=== PATIENT | female | born 2000 | race Two or more races ===

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

== ENCOUNTER 2021-04-18 03:08 | Emergency (ER) | payer MEDICAID ==
[~2021-04-18] VITALS: Ht 157.5 cm; Wt 55.0 kg
[~2021-04-18 03:08] MED LIST: CEPH-264 PO
--- NOTE | 2021-04-18 03:14 | PHYS DOC ---
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 I had a pseudo seizure... I get them when I am stressed.... 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 it been reall stressful.. I get anxious.. then start hyper ventilation. and eventually cramp up.. " .. " I do this to myself... I just get ahead of it... sometimes.." Patient is a 20 year old female who presents with above hx and complaints of seizure like activity. Patient states symptoms are similar to her prior episodes of pseudoseizures she has had in the past. Patient states she becomes anxious and then hyperventilates to the point of muscle cramping and contractions. Patient has been evaluated previously for seizures and no physical etiology found. Patient does vape since age 16. Patient denies any marijuana products today but has used them regularly previously. Patient recently started a new job at the [employer] which she finds very stressful. No recent travel. No specific ill contacts. No history of trauma. No history of fever or chills. Patient states her IUD appears to be still in place from placement a year and a half ago with the of her child who is currently with her sister. Patient has been seen previously in the ED for abdomen pain . Pt.has past hx of anxiety, anemia. PTSD, G1T1. Review of Systems: Review of Systems: Constitutional: Denies fever or chills Eyes: Denies change in visual acuity HENT: Denies nasal congestion or sore throat Respiratory: Denies cough or shortness of breath Cardiovascular: Denies chest pain or edema GI: Denies abdominal pain, nausea, vomiting, bloody stools or diarrhea : Denies dysuria Musculoskeletal: Denies back pain or joint pain Integument: Denies rash Neurologic: Denies headache, focal weakness or sensory changes. Complains of seizure-like activity Endocrine: Denies polyuria or polydipsia Lymphatic: Denies swollen glands Psychiatric: Complains of anxiety Family History: Family History: Noncontributory to presentation Current Medications: Current Meds: See nursing for home meds Allergies: Allergies: Allergies Coded Allergies Type Severity Reaction Last Updated Verified No Known Allergies Allergy Unknown 03/23/20 Yes Physical Exam: PE: Constitutional: Well developed, well nourished, in acute motional distress, non- toxic appearance. [] HENT: Normocephalic, atraumatic, bilateral external ears normal, oropharynx moist, no oral exudates, nose normal. [] Eyes: PERRLA, EOMI, conjunctiva normal, no discharge. [] Neck: Normal range of motion, no tenderness, supple, no stridor. [] Cardiovascular:Heart rate regular rhythm, no murmur [. Bed side monitor shows a sinus rhythm-tachycardia just over 100 bpm. Lungs & Thorax: Bilateral breath sounds equal apex few scattered wheezes on auscultation [] patient currently hyperventilating Abdomen: Bowel sounds normal, soft, no tenderness, no masses, no pulsatile masses. [] Skin: Warm, dry, no erythema, no rash. [] Back: No tenderness, no CVA tenderness. [] Extremities: No tenderness, no cyanosis, no clubbing, ROM intact, no edema. No cording appreciated Neurologic: Alert and oriented X 3, normal motor function, normal sensory function, no focal deficits noted. DTRs +2 patella and brachial. Inter Com Servicer equal. No drift. Ambulatory. Psychologic: Affect anxious, judgement normal, mood normal. [] EKG: EKG: [] Radiology/Procedures: Radiology/Procedures: [] Heart Score: C/O Chest Pain: N/A Risk Factors: Risk Factors: DM, Current or recent (<one month) smoker, HTN, HLP, family history of CAD, obesity. Risk Scores: Score 0 - 3: 2.5% MACE over next 6 weeks - Discharge Home Score 4 - 6: 20.3% MACE over next 6 weeks - Admit for Clinical Observation Score 7 - 10: 72.7% MACE over next 6 weeks - Early Invasive Strategies Course & Med Decision Making: Course & Med Decision Making Pertinent Labs and Imaging studies reviewed. (See chart for details) Patient currently declining extensive work-up. Does wished have po trial of Ativan p.o.. Patient normally follows at [facility] as a dependent. Pt. symptoms resolved while under observation in ED. Requesting discharge and no further work up at this time. Patient encouraged to keep follow-up at [facility]. Patient encouraged to keep follow-up with counseling center. Patient encouraged return if any concerns. Impression: 1. Anxiety- Panic Attack- Prior Dx. 2. Hx. of Seizure like activity- prior Dx of pseudo seizure 3. Hyperventilation 4. Marijuana- Vape use [] Dragon Disclaimer: Dragon Disclaimer: This electronic medical record was generated, in whole or in part, using a voice recognition dictation system. Departure Departure: Referrals: PCP,NO (PCP) Orquidea Disclaimer This chart was dictated in whole or in part using Voice Recognition software in a busy, high-work load, and often noisy Emergency Department environment. It m ay contain unintended and wholly unrecognized errors or omissions. COURTNEY CABRERA MD Apr 18, 2021 03:14
[2021-04-18] MEDS ORDERED: ONDANSETRON PF 4 MG/2 ML VIAL. ONE (03:40)
[2021-04-18] MEDS ORDERED: ONDANSETRON ODT 4 MG TAB.RAPDIS ONE (03:43)
[2021-04-18] MEDS ORDERED: LORazepam 1 MG TABLET PO ONE (04:00)
[2021-04-18] MEDS ORDERED: ONDANSETRON ODT 4 MG TAB.RAPDIS PO ONE (04:00)
[2021-04-18 05:03] LABS: BARBITURATES NEG (NEG); BENZODIAZEPINES NEG (NEG); CANNABINOIDS POS (NEG); COCAINE NEG (NEG); METHADONE NEG (NEG); OPIATES NEG (NEG); PHENCYCLIDINE NEG (NEG)
[2021-04-18 05:06] LABS: AMPHETAMINE/METHAMPHETAMINE NEG (NEG)
[2021-04-18 05:08] LABS: BILIRUBIN,URINE NEG (NEG); CLARITY,URINE CLEAR; COLOR,URINE YELLOW; GLUCOSE,URINE NEG (NEG)
[2021-04-18 05:09] LABS: BACTERIA,URINE 0 /HPF (0-FEW); NITRITE,URINE NEG (NEG); RBC,URINE 0 /HPF (0-2); SQUAMOUS EPITHELIAL CELL,UR FEW /LPF; UROBILINOGEN,URINE 0.2 mg/dL (0.2 mg/dL); WBC,URINE 0 /HPF (0-4)
[2021-04-18 05:53] VITALS: BP 103/59
== END 2021-04-18 06:05 | disposition home or self-care (01) ==
LOC: ER 03:08
DX: F41.9 Anxiety disorder, unspecified (principal); R06.4 Hyperventilation; Z86.2 Personal history of diseases of the blood and blood-forming organs and certain disorders involving the immune mechanism; F43.10 Post-traumatic stress disorder, unspecified
CPT/HCPCS: 36415; 80307; 81001; 81025; 99284; Q0162

== ENCOUNTER 2021-04-22 22:51 | Observation (INO) | payer MEDICAID ==
[~2021-04-22] VITALS: Ht 165.1 cm; Wt 53.5 kg
--- NOTE | 2021-04-22 22:55 | PHYS DOC ---
Past History Past Medical History: Anemia, Anxiety, Seizure, Other Additional Past Medical Histor: SICKLE CELL TRAIT Past Surgical History: No Surgical History Smoking: Non-smoker Alcohol Use: None Drug Use: None Adult General HPI HPI Patient is a 20-year-old female with multiple medical problems including anxiety and panic attacks who presents with a chief complaint of panic attack and muscle spasms. States over the course of the day she has been having multiple anxiety attacks, starts breathing really fast and starts having some muscle spasms especially around her mouth. Denies any loss of consciousness, headache, changes in vision, chest pain, shortness of breath, abdominal pain, nausea, vomiting, dysuria, hematuria, blood in the stool or diarrhea. States she has seen her primary care and was started on Lexapro about 3 weeks ago and has been taking it as prescribed. Denies any recent traumas, travels, illnesses, fevers. Review of Systems Review of Systems Review of systems otherwise unremarkable except noted in HPI Allergies Allergies Allergies Coded Allergies Type Severity Reaction Last Updated Verified No Known Allergies Allergy Unknown 03/23/20 Yes Physical Exam Physical Exam Constitutional: Well developed, well nourished, no acute distress, non-toxic appearance. [] HENT: Normocephalic, atraumatic, bilateral external ears normal, oropharynx moist, no oral exudates, nose normal. [] Eyes: PERRLA, EOMI, conjunctiva normal, no discharge. [] Neck: Normal range of motion, no tenderness, supple, no stridor. [] Cardiovascular:Heart rate regular rhythm, no murmur [] Lungs & Thorax: Bilateral breath sounds clear to auscultation [] Abdomen: soft, no tenderness, no masses, no pulsatile masses. [] Skin: Warm, dry, no erythema, no rash. [] Back: No tenderness, no CVA tenderness. [] Extremities: No tenderness, no cyanosis, no clubbing, ROM intact, no edema. [] Neurologic: Alert and oriented X 3, normal motor function, normal sensory function, no focal deficits noted. [] Psychologic: Affect normal, judgement normal, mood anxious [] EKG EKG [] Radiology/Procedures Radiology/Procedures [] Heart Score C/O Chest Pain: No Risk Factors: Risk Factors: DM, Current or recent (<one month) smoker, HTN, HLP, family history of CAD, obesity. Risk Scores: Risk Factors: DM, Current or recent (<one month) smoker, HTN, HLP, family history of CAD, obesity. Course & Med Decision Making Course & Med Decision Making Patient is a 20-year-old female who presents with anxiety and panic attack and muscle spasms Vital signs notable for heart rate in the 90s. Physical exam noted above. Blood sugar normal. Given antianxiety medication. Laboratory analysis notable for leukocytosis, hypokalemia, suggestive of metabolic acidemia with compensatory respiratory alkalosis given anion gap, and ketonuria. Given findings, SIRS criteria there is some concern for sepsis although urine is clean, chest x-ray was normal and CT of the abdomen pelvis did not show anything. CT of the head also not concerning. The blood cultures and started on antibiotics and fluid resuscitation. Discussed findings with patient and recommended admission to the hospital for continued evaluation and treatment for possible sepsis. Patient grateful, verbalized understanding and agreed with plan of admission. Dragon Disclaimer Dragon Disclaimer This electronic medical record was generated, in whole or in part, using a voice recognition dictation system. Departure Departure: Impression: Primary Impression: SIRS (systemic inflammatory response syndrome) Additional Impressions: Nausea and vomiting Rigors Hypokalemia Leukocytosis Metabolic acidosis with respiratory alkalosis Disposition: ADMITTED INPATIENT Admitting Physician: Collin Francis Condition: STABLE Referrals: PCP,NO (PCP) Problem Qualifiers BHUPENDRA ROSS MD Apr 22, 2021 22:55
[2021-04-22] MEDS ORDERED: MIDAZOLAM HCL PF 5 MG/5 ML VIAL. IV ONE (23:15)
[2021-04-22] MEDS ORDERED: METOCLOPRAMIDE HCL 10 MG/2 ML VIAL. IVP ONE (23:15)
[2021-04-22 23:44] LABS: BILIRUBIN,URINE NEG (NEG); CLARITY,URINE HAZY; COLOR,URINE YELLOW; GLUCOSE,URINE NEG (NEG); NITRITE,URINE NEG (NEG); RBC,URINE OCC /HPF (0-2); UROBILINOGEN,URINE 0.2 mg/dL (0.2 mg/dL)
[2021-04-22 23:45] LABS: BACTERIA,URINE 0 /HPF (0-FEW); SQUAMOUS EPITHELIAL CELL,UR OCC /LPF
[2021-04-23] MEDS ORDERED: IV DEXTROSE 5% - 0.9 % NACL 1,000 ML IV ONE ×2 (00:15→01:15)
[2021-04-23 00:21] LABS: HEMATOCRIT 36.8 % (36.0-47.0); HEMOGLOBIN 11.8 g/dL (12.0-15.5); RED BLOOD COUNT 5.79 x10^6/uL (3.50-5.40); RED CELL DISTRIBUTION WIDTH 19.4 % (11.5-14.5); WHITE BLOOD COUNT 12.5 x10^3/uL (4.0-11.0)
[2021-04-23 00:25] LABS: CALCIUM 9.4 mg/dL (8.5-10.1); CREATININE 0.6 mg/dL (0.6-1.0); GFR 155.8; MAGNESIUM 1.9 mg/dL (1.8-2.4)
[2021-04-23 00:35] LABS: POTASSIUM 2.6 mmol/L (3.5-5.1)
[2021-04-23] MEDS ORDERED: ONDANSETRON PF 4 MG/2 ML VIAL. ONE (01:29)
[2021-04-23] MEDS ORDERED: ONDANSETRON PF 4 MG/2 ML VIAL. IVP ONE (01:30)
--- NOTE | 2021-04-23 01:36 | RAD ---
EXAM: CT Head without IV contrast CLINICAL HISTORY: Reason: infectious w/u COMPARISON: None. TECHNIQUE: Routine CT of the head without contrast. PQRS compliance statement - One or more of the following individualized dose reduction techniques wer e utilized for this study: 1. Automated exposure control 2. Adjustment of the mA and/or kV according to patient size 3. Use of iterative reconstruction technique FINDINGS: There is no evidence of hemorrhage, mass or extra-axial fluid collection. Mcfarland-white differentiation is maintained with no evidence of edema. There is no mass effect or shift of the intracranial structures. The ventricles, basilar cisterns and cortical sulci are normal in size and configuration for the carol ents stated age. The cerebellum and brainstem are unremarkable. The calvarium demonstrates no evidence of fracture or focal lesion. There is normal aeration of the visualized paranasal sinuses and mastoid air cells. The visualized portions of the orbits are normal. IMPRESSION: No evidence for acute intracranial process. Electronically signed by: Kody Norris MD (04/23/2021 1:34 AM) [facility]
--- NOTE | 2021-04-23 01:37 | RAD ---
EXAM: AP View of the chest DATE: 04/23/2021 12:52 AM INDICATION: Reason: w/u / Spl. Instructions: / History: COMPARISON: No Prior FINDINGS: The heart is not enlarged. Mediastinal and hilar contours are normal. No focal parenchymal airspace opacity. No pleural effusion or pneumothorax. IMPRESSION: 1. No radiographic evidence for acute cardiopulmonary process. Electronically signed by: Kody Norris MD (04/23/2021 1:34 AM) [facility]
[2021-04-23] MEDS ORDERED: IOHEXOL 300 MG/ML 75 ML VIAL. IV ONE (01:45)
[2021-04-23] MEDS ORDERED: CONTRAST GIVEN. MC PRN (02:00)
[2021-04-23] MEDS: POTASSIUM CHLORIDE 20MEQ 100 ML IV SCH ×2 (02:15→02:26)
--- NOTE | 2021-04-23 02:31 | RAD ---
EXAM: CT Abdomen and Pelvis with IV contrast CLINICAL HISTORY: Reason: OMNI 300,75ML IV.ABD pain, sepsis w/u / Spl. Instructions: / History: . COMPARISON: none TECHNIQUE: Helical CT of the abdomen and pelvis was performed following the administration of intrave nous contrast. Axial, coronal and sagittal reformatted images were generated. PQRS compliance statement - One or more of the following individualized dose reduction techniques wer e utilized for this study: 1. Automated exposure control 2. Adjustment of the mA and/or kV according to patient size 3. Use of iterative reconstruction technique FINDINGS: Lower Chest: Lung bases are clear. Abdomen and Pelvis: Focal low-attenuation along falciform ligament likely focal fatty infiltration. Spleen is unremarkabl e. Adrenal glands are normal. Pancreas is unremarkable. Symmetric nephrograms. No focal renal lesion. No hydronephrosis. No hydroureter. Bladder wall thickening likely cystitis. IUD is seen within the l ower uterine segment, with limited possibly extending through the myometrium. Moderate colonic stool content is seen. No small or large bowel dilatation. No bowel obstruction. No abdominal or pelvic asc ites. No abdominal or pelvic lymphadenopathy. A 2.7 x 1.8 x 2.2 cm cystic structure is seen in the re gion of the distal urethra or low vagina. No aggressive osseous lesion is seen. IMPRESSION: 2.7 cm cystic structure abutting the urethra or vagina, with peripheral enhancement, is new compared to prior CT 03/23/2020. This may represent urethral cyst, given the peripheral enhancement abscess is not excluded. This can be correlated with clinical examination. Bladder wall thickening may be seen with cystitis. IUD is seen within the likely uterine segment, partially within the myometrium Electronically signed by: Kody Norris MD (04/23/2021 2:28 AM) [facility]
[2021-04-23 02:34] LABS: BARBITURATES NEG (NEG); BENZODIAZEPINES NEG (NEG); CANNABINOIDS POS (NEG); COCAINE NEG (NEG); METHADONE NEG (NEG); OPIATES NEG (NEG); PHENCYCLIDINE NEG (NEG)
[2021-04-23 02:35] LABS: AMPHETAMINE/METHAMPHETAMINE NEG (NEG)
[2021-04-23] MEDS ORDERED: POTASSIUM CHLORIDE 20 MEQ TABLET.ER. PO ONE ×2 (02:46→10:45)
[2021-04-23] MEDS ORDERED: ACETAMINOPHEN 325 MG TABLET PO PRN (03:15)
[2021-04-23] MEDS ORDERED: ONDANSETRON PF 4 MG/2 ML VIAL. IVP PRN (03:15)
[2021-04-23] MEDS ORDERED: PROCHLORPERAZINE 10 MG/2 ML VIAL. IV ONE (03:30)
[2021-04-23] MEDS ORDERED: diphenhydrAMINE 50 MG/ML VIAL IVP ONE (03:30)
[2021-04-23] MEDS ORDERED: PROCHLORPERAZINE 10 MG/2 ML VIAL. ONE (03:33)
[2021-04-23 04:12] VITALS: BP 104/69
--- NOTE | 2021-04-23 04:52 | NUR ---
The patient, BILL COLLINS, 20 y/o, F admitted by EDINSON LEZAMA MD, was given written information regarding hospital policies, unit procedures and contact persons. Valuables were checked and vital signs obtained. Reviewed with PT her PMH, PSH, SH, FH, and medications. PT oriented to unit.
[2021-04-23 06:18] VITALS: BP 108/73
[2021-04-23] MEDS ORDERED: FLU VACC QUAD 21-22 (6MOS+) PF 0.5 ML SYRINGE. VAX IM ONE (09:00)
[2021-04-23] MEDS ORDERED: MORPHINE SULFATE 2 MG/ML DISP.SYRIN. IV PRN (10:30)
--- NOTE | 2021-04-23 10:45 | NUR ---
PATIENT C/O PAIN TO LOW ABDOMEN AND BACK, DR. LEZAMA NOTIFIED, ORDER FOR MORPHINE PRN OBTAINED, ADMINISTERED TO THE PATIENT.
[2021-04-23 10:46] VITALS: BP 109/73
--- NOTE | 2021-04-23 11:22 | HP ---
ATTENDING PHYSICIAN: Dr. Francis. CHIEF COMPLAINT: Vague symptoms of back pain and panic attack. HISTORY OF PRESENT ILLNESS: The patient is a 20-year-old female with vague symptoms and her grandmother told her to come in. She has had some muscle spasms and some nonspecific abdominal pain. She has had one episode of diarrhea. Her potassium was a bit low. The workup in the ED showed a total body CT, which show evidence of cystitis. There is unremarkable cyst that is non-clinically relevant. She was admitted then for antibiotics and treatment of honeymoon cystitis. She is sexually active. PAST MEDICAL HISTORY: Significant for a natural childbirth a year ago. She has a 1-year-old daughter. She has an IUD. 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 She is unmarried. Her grandmother takes care of her child. Her father is active station in [place]. CURRENT MEDICATIONS: Include Lexapro, which was started for anxiety and depression. ALLERGIES: She has no known drug allergies. SOCIAL HISTORY: Nonsmoker, nondrinker. There is evidence of marijuana use. REVIEW OF SYSTEMS: Unremarkable for any fevers, chills, COVID exposure. All other systems reviewed and turned to be negative. PHYSICAL EXAMINATION: GENERAL: When I saw her, this is a pleasant young female. VITAL SIGNS: Initial vital signs showed a blood pressure 108/73. She was afebrile, oxygen saturation 98% on room air. HEENT: Head is without trauma. Pupils are reactive. Sclerae nonicteric. Oropharynx clear. NECK: Supple, no bruits. LUNGS: Clear. CARDIOVASCULAR: Regular heart tones. No gallop. ABDOMEN: Soft. EXTREMITIES: Without edema. NEUROLOGIC: Function focally intact. SKIN: Warm and dry. PERTINENT LABORATORY STUDIES: Hemoglobin is 11.8 g/dL, white count 12,500. Potassium 2.6 mEq. Her toxicology screen was positive for cannabis. Urinalysis showed leukocyte esterase. No bacteria, occasional squamous cell. CT of the abdomen showed evidence of cystitis. Head CT was unremarkable. Chest x-ray was clear. ASSESSMENT: 1. A 20-year-old female with symptomatic cystitis. 2. History of panic attacks. 3. Asymptomatic hypokalemia. PLAN: 1. Observation status. 2. Empiric antibiotic Levaquin administered. 3. Potassium supplementation for followup, chemistries as scheduled. SYH/KAREL DR: LEO/mary jo TID: [id number]
--- NOTE | 2021-04-23 11:52 | NUR ---
PATIENT IS DISCHARGED HOME, DISCHARGE INSTRUCTIONS AND PRESCRIBED MEDICATIONS REVIEWED, PATIENT VERBALIZED UNDERSTANDING. PATIENT LEFT ROM 119 VIA AMBULATION ACCOMP BY THIS RN.
--- NOTE | 2021-04-23 17:37 | DS ---
DATE OF DISCHARGE: 04/23/2021 ATTENDING PHYSICIAN: Collin Francis MD FINAL DISCHARGE DIAGNOSES: 1. Acute cystitis. 2. Chronic back pain. 3. Asymptomatic hypokalemia. 4. Depression with anxiety. HISTORY AND PHYSICAL: The patient is a 20-year-old female, otherwise healthy, admitted through the ED with vague symptoms of GI pain, abdominal symptoms and back pain. CT of the abdomen showed evidence of acute cystitis. PHYSICAL EXAMINATION: Please see the dictated note. PERTINENT LABORATORY AND X-RAY STUDIES: Hemoglobin on admission was 11.8 g/dL, white count 12,500. Potassium was 2.6 mEq. This will be replaced and followed up as an outpatient. Toxicology screen positive for cannabinoids. Urinalysis showed some bacteria, leukocyte esterase. Coronavirus swab was negative. COURSE IN THE HOSPITAL: The patient was admitted. She was given empiric Levaquin. We started oral potassium replacement along with pain medication. She did well. By the time I saw her, her vital signs were stable, she was afebrile. Symptoms resolved and pain was controlled. She wanted to go home. I recommended Levaquin 500 mg p.o. daily, 1 daily for 7 more days, K-Dur 20 mEq p.o. daily. [place] She should get a recheck chemistry panel in 10 days. Should take [id number] Tylenol. The patient was then discharged from our hospital in stable condition with explicit drug and followup care. NADER/RICHARD LEONG: LEO/mary jo TID: [id number]
[2021-04-23] MEDS ORDERED: POTASSIUM CHLORIDE 20 MEQ TABLET.ER. PO SCH (21:00)
== END 2021-04-23 11:50 | disposition home or self-care (01) ==
LOC: ER 22:51 → INTOOBSV 04-23 03:15 → 1 SOUTH 04-23 03:15 → ER 04-23 03:42
PROVIDERS: ADMIT Hospitalist; ATTEND Hospitalist
DX: N30.90 Cystitis, unspecified without hematuria (principal); Z20.822 Contact with and (suspected) exposure to COVID-19; R65.10 Systemic inflammatory response syndrome (SIRS) of non-infectious origin without acute organ dysfunction; F41.0 Panic disorder [episodic paroxysmal anxiety]; E87.6 Hypokalemia; R68.89 Other general symptoms and signs; D72.829 Elevated white blood cell count, unspecified; E87.2 Acidosis; M54.9 Dorsalgia, unspecified; G89.29 Other chronic pain; F32.9 Major depressive disorder, single episode, unspecified; F41.9 Anxiety disorder, unspecified; R11.2 Nausea with vomiting, unspecified
CPT/HCPCS: 36415; 70450; 71045; 74177; 80048; 80307; 81001; 81025; 82803; 83605; 83735; 85027; 87040; 87086; 87426; 87491; 87591; 96361; 96365; 96366; 96368; 96375; 96376; 99284; G0378; J0780; J1200; J1956; J2250; J2270; J2405; J2765; J3010; J3480; J7042; Q0111; Q9967; U0003; G0379; 99285-25

== ENCOUNTER 2021-06-23 06:12 | Emergency (ER) | payer MEDICAID ==
[~2021-06-23] VITALS: Ht 165.1 cm; Wt 50.2 kg
[2021-06-23 06:25] VITALS: BP 118/73
--- NOTE | 2021-06-23 06:31 | PHYS DOC ---
Past History Past Medical History: Anemia, Anxiety, Seizure, Other Additional Past Medical Histor: SICKLE CELL TRAIT Past Surgical History: No Surgical History Smoking: Non-smoker Alcohol Use: None Drug Use: None Adult General Chief Complaint Chief Complaint: NAUSEA/VOMITING/DIARRHEA HPI HPI Patient is a 20-year-old female presenting for nausea and vomit. This is a chronic issue. States this is been going on for several months. Reports she was admitted here in April 2021 for sepsis due to UTI and urethral abscess that was subsequently treated with antibiotics. States she has had no issues with that ever since. Nonetheless, she reports ongoing nausea and vomit. States only thing that helps is marijuana use. P.o. intake makes worse. States she has lost approximately 20 pounds just because she feels nauseous every time she eats. Denies any significant alcohol or NSAID abuse, no other intra- abdominal abnormalities or prior surgeries. She saw her primary care physician yesterday who after thorough evaluation stated that he thought it was anxiety and subsequently prescribed her numerous behavioral health medications. Patient reports she did not think this is the case and is here for evaluation. Denies any other concerning signs or symptoms of systemic illness such as fever, chills, chest pain, cough, shortness of breath, ripping or tearing sensation in abdomen, changes in bladder or bowel function, no urinary symptoms Review of Systems Review of Systems Fourteen body systems of review of systems have been reviewed. See HPI for pertinent positives and negative responses, other jin all other systems are negative, non-pertinent or non-contributory Allergies Allergies Allergies Coded Allergies Type Severity Reaction Last Updated Verified No Known Allergies Allergy Unknown 06/23/21 Yes Physical Exam Physical Exam Constitutional: Well developed, well nourished, no acute distress, non-toxic appearance. HENT: Normocephalic, atraumatic, bilateral external ears normal, oropharynx moist, no oral exudates, nose normal. Eyes: PERRLA, EOMI, conjunctiva normal, no discharge. Neck: Normal range of motion, no tenderness, supple, no stridor. Cardiovascular: Heart rate regular, sinus rhythm, no murmurs rubs or gallops Lungs & Thorax: Bilateral breath sounds clear to auscultation Abdomen: Bowel sounds normal, soft, no tenderness, no masses, no pulsatile masses. Nonsurgical abdomen, no peritoneal signs Skin: Warm, dry, no erythema, no rash. Back: No tenderness, no CVA tenderness. Extremities: No tenderness, no cyanosis, no clubbing, ROM intact, no edema. Neurologic: Alert and oriented X 3, grossly normal motor & sensory function, no focal deficits noted. Psychologic: Anxious affect and mood Current Patient Data Vital Signs Vital Signs Date Time Temp Pulse Resp B/P (MAP) Pulse Ox O2 Delivery O2 Flow Rate FiO2 06/23/21 06:25 98.5 88 16 118/73 (88) 97 Room Air Vital Signs Date Time Temp Pulse Resp B/P (MAP) Pulse Ox O2 Delivery O2 Flow Rate FiO2 06/23/21 06:25 98.5 88 16 118/73 (88) 97 Room Air EKG EKG [] Radiology/Procedures Radiology/Procedures [] Heart Score C/O Chest Pain: No Risk Factors: Risk Factors: DM, Current or recent (<one month) smoker, HTN, HLP, family history of CAD, obesity. Risk Scores: Risk Factors: DM, Current or recent (<one month) smoker, HTN, HLP, family history of CAD, obesity. Course & Med Decision Making Course & Med Decision Making ABCs unremarkable HPI and comprehensive physical exam nonconcerning for any emergent or surgical issues I reviewed entirety of prior ER work-up that was grossly nonconcerning. Physical exam today also nonconcerning I discussed anxiety is likely contributing to her presenting symptoms. Also discussed marijuana as potential source. Although patient vaccinated for COVID- 19, cannot exclude and PCR test pending. Discussed this might be related to GERD/stomach ulcer and so joint decision made to start Carafate and acid brandi. Patient has Phenergan at home, request for additional antiemetic granted and patient will be discharged home with Reglan No indication for further diagnostic ER workup, intervention, or hospitalization at this time. Strict return precautions discussed, close PCP follow-up advised Orquidea Disclaimer Orquidea Disclaimer This electronic medical record was generated, in whole or in part, using a voice recognition dictation system. Departure Departure: Impression: Primary Impression: Nausea & vomiting Additional Impression: Person under investigation for COVID-19 Disposition: HOME / SELF CARE / HOMELESS Condition: STABLE Referrals: EDINSON WILEY MD (PCP) ADELE YOST MD Patient Instructions: Nausea and Vomiting Additional Instructions: You were seen for abdominal pain. We are putting you on a medication to reduce your stomach acid levels. You should avoid alcohol, fatty or spicy foods, or NSAIDs as these can exacerbate your symptoms. You are also seen for possible infection with COVID-19. Your physical exam was reassuring. We tested you for COVID-19 but this test does not come back for 1 to 2 days. In the meantime you need to quarantine yourself at home away from all other individuals, especially those who are elderly or have any other chronic health issues or an immunocompromised status. Please contact your primary care physician to review ER visit today, as discussed you would benefit from a gastroenterology co nsultation. Return to the ED if you develop worsening pain, fever, black or bloody stools, or any other new or concerning symptoms. The medicine we started you on can take a few days to work fully. Scripts Metoclopramide Hcl (REGLAN) 10 Mg Tablet 1 TAB PO TID for nausea, #30 TAB 0 Refills before food and bedtime Prov: CHASIDY AQUINO DO 06/23/21 Pantoprazole Sodium (PROTONIX) 40 Mg Tablet.dr 1 TAB PO DAILY for stomach issues, #30 TAB 0 Refills Prov: CHASIDY AQUINO DO 06/23/21 Sucralfate (CARAFATE) 1 Gm/10 Ml Oral.susp 10 ML PO QID for stomach issues for 30 Days, L 0 Refills before food Prov: CHASIDY AQUINO DO 06/23/21 Problem Qualifiers CHASIDY AQUINO DO Jun 23, 2021 06:31
[2021-06-23] MEDS ORDERED: METOCLOPRAMIDE 10 MG TABLET PO ONE (06:45)
[2021-06-23] MEDS ORDERED: SUCR1ORA5 PO (06:48)
[2021-06-23] MEDS ORDERED: PANT40TA3 PO (06:48)
[2021-06-23] MEDS ORDERED: METO10TA81 PO (06:48)
--- NOTE | 2021-06-26 09:19 | NUR ---
Called for covid results @[phone] no answer. Message left
--- NOTE | 2021-06-26 09:21 | NUR ---
patient notified of covid result
== END 2021-06-23 07:14 | disposition home or self-care (01) ==
LOC: ER 06:12
DX: R11.2 Nausea with vomiting, unspecified (principal); F41.9 Anxiety disorder, unspecified; Z20.822 Contact with and (suspected) exposure to COVID-19; Z86.2 Personal history of diseases of the blood and blood-forming organs and certain disorders involving the immune mechanism
CPT/HCPCS: 99283; C9803; U0003

== ENCOUNTER 2021-07-17 19:06 | Emergency (ER) | payer MEDICAID ==
[~2021-07-17] VITALS: Ht 165.1 cm; Wt 50.8 kg
[~2021-07-17 19:06] MED LIST changes: +METO10TA81 PO; +PANT40TA3 PO; +SUCR1ORA5 PO
--- NOTE | 2021-07-17 19:13 | PHYS DOC ---
Past History Past Medical History: Anemia, Anxiety, Seizure, Other Additional Past Medical Histor: SICKLE CELL TRAIT, borderline personality d/o, pseudoseizure Past Surgical History: No Surgical History Smoking: Non-smoker Alcohol Use: None Drug Use: None General Adult EDM: Chief Complaint: FLANK PAIN HPI: HPI: " I got a UTI or something.. I hurt in my abdomen.. and back....both flanks hurt... " Patient is a 20 year old female [employer] [place] [employer] who presents with above hx and complaints of Rt flank pain. And some generalized abdomen pain. Patient denies any trauma. Patient denies any travel. Patient denies specific ill contacts. Patient denies any history of ovarian cyst. Patient denies any history of Crohn's or inflammatory bowel disorders with him or her family members. Patient does have a history of cystitis, UTI, anxiety, panic attacks, hypokalemia, irritable bowel syndrome, and uses marijuana.. No recent trauma. Uses an IUD for control. Follows with Dr. Wiley. Review of Systems: Review of Systems: Constitutional: Denies fever or chills Eyes: Denies change in visual acuity HENT: Denies nasal congestion or sore throat Respiratory: Denies cough or shortness of breath Cardiovascular: Denies chest pain or edema GI: Complains of abdominal pain, nausea, vomiting. Denies, bloody stools or diarrhea : Denies dysuria Musculoskeletal: Complains of bilateral flank back pain Integument: Denies rash Neurologic: Denies headache, focal weakness or sensory changes Endocrine: Denies polyuria or polydipsia Lymphatic: Denies swollen glands Psychiatric: Denies depression or anxiety Family History: Family History: Noncontributory Current Medications: Current Meds: See nursing for home meds Allergies: Allergies: Allergies Coded Allergies Type Severity Reaction Last Updated Verified No Known Allergies Allergy Unknown 06/23/21 Yes Physical Exam: PE: Constitutional: Moderate acute distress, non-toxic appearance. [] HENT: Normocephalic, atraumatic, bilateral external ears normal, oropharynx moist, no oral exudates, nose normal. [] Eyes: PERRLA, EOMI, conjunctiva normal, no discharge. [] Neck: Normal range of motion, no tenderness, supple, no stridor. [] Cardiovascular:Heart rate regular rhythm, no murmur [] Lungs & Thorax: Bilateral breath sounds equal apex auscultation [] Abdomen: Bowel sounds are active, soft, generalized tenderness, no masses, no pulsatile masses. Rebound to flanks bilaterally on percussion. Skin: Warm, dry, no erythema, no rash. [] Back: No tenderness, lateral CVA tenderness. [] Extremities: No tenderness, no cyanosis, no clubbing, ROM intact, no edema. Psoas sign bilateral. Neurologic: Alert and oriented X 3, normal motor function, normal sensory function, no focal deficits noted. [] Psychologic: Affect anxious, judgement normal, mood tearful EKG: EKG: [] Radiology/Procedures: Radiology/Procedures: [] [place] [address] IMAGING REPORT Signed PATIENT: BILL COLLINS ACCOUNT: [id number] : 2000 LOCATION: ER AGE: 20 SEX: F EXAM STATUS: REG ER ORD. PHYSICIAN: COURTNEY CABRERA MD REASON: Right sided abdomen pain PROCEDURE: ACUTE ABDOMEN SERIES INDICATION: Reason: Right sided abdomen pain / Spl. Instructions: / History: COMPARISON: April 23, 2021 CT abdomen IMPRESSION: 3 views of the chest and abdomen obtained. Cardiac silhouette is unremarkable. No definite focal airspace consolidation or pulmonary edema. Air scattered throughout the bowel in a nonspecific but not grossly obstructive pattern. Intrauterine device is seen at the pelvis. Electronically signed by: Madhavi Leslie MD (07/17/2021 11:52 PM) DESKTOP- [id number] DICTATED AND SIGNED BY: MADHAVI LESLIE MD DATE: 07/17/21 3555 CC: EDINSON WILEY MD; COURTNEY CABRERA MD ~MTH0 0 Signed PATIENT: BILL COLLINS ACCOUNT: [id number] : 2000 LOCATION: ER AGE: 20 SEX: F EXAM STATUS: REG ER ORD. PHYSICIAN: COURTNEY CABRERA MD REASON: Right sided abdomen pain PROCEDURE: CT ABDOMEN PELVIS WO CONTRAST Abdominal and Pelvis CT, Without Contrast: History: Reason: Right sided abdomen pain / Spl. Instructions: / History: Comparison: April 23, 2021. Procedure: Axial images are obtained of the abdomen and pelvis, without IV or oral contrast. Oral Contrast: No Findings: Evaluation of solid organs is limited without contrast. The appendix is normal. The gallbladder is normal. There is an IUD in the uterus. There is mild wall thickening of the descending colon hepatic flexure and transverse colon. Liver: Normal. Spleen: Normal. Pancreas: Normal. Adrenal Glands: Normal. Kidneys: Normal. There is no free air or free fluid. There is no lymphadenopathy. The urinary bladder is collapsed. Moderate wall thickening is likely hypertrophy. There is no pericolonic inflammation identified. Impression: Mild luna colitis could be inflammatory or infectious. There is no diverticulitis. There is no air in the wall to suggest ischemic colitis. End impression PQRS Compliance Statement: One or more of the following individualized dose reduction techniques were utilized for this examination: 1. Automated exposure control 2. Adjustment of the mA and/or kV according to patient size 3. Use of iterative reconstruction technique Electronically signed by: Jacquelin Morales III, MD (07/17/2021 9:40 PM) [facility] DICTATED AND SIGNED BY: JACQUELIN MORALES III, MD DATE: 07/17/212132 CC: EDINSON WILEY MD; COURTNEY CABRERA MD ~MTH0 0 Heart Score: C/O Chest Pain: N/A HEART Score for Chest Pain: HEART Score for Chest Pain Response (Comments) Value History Slighlty/Non-Suspicious 0 ECG Normal 0 Age < 45 0 Risk Factors No Risk Factors 0 Troponin < Normal Limit 0 Total 0 Risk Factors: Risk Factors: DM, Current or recent (<one month) smoker, HTN, HLP, family history of CAD, obesity. Risk Scores: Score 0 - 3: 2.5% MACE over next 6 weeks - Discharge Home Score 4 - 6: 20.3% MACE over next 6 weeks - Admit for Clinical Observation Score 7 - 10: 72.7% MACE over next 6 weeks - Early Invasive Strategies Course & Med Decision Making: Course & Med Decision Making Pertinent Labs and Imaging studies reviewed. (See chart for details) Go on clear fluid diet only for the next 48 hours. No solids. No milk products. Clear fluids only may push Jell-O 7-Up Gatorade Pedialyte popsicles clear juices such as apple or grape. Avoid solids and milk products next 2 days. Take Cipro 500 twice a day and Flagyl 500 x3 times a day. Trial of mesalamine. Take Zofran as needed for nausea. Take Tylenol and ibuprofen for pain. Once over this acute phase of your illness recommend colonoscopy.. Follow-up primary care. Impression: 1. Abdomen pain 2. Pancolitis 3. Hx. Anxiety Orquidea Disclaimer: Orquidea Disclaimer: This electronic medical record was generated, in whole or in part, using a voice recognition dictation system. Departure Departure: Referrals: EDINSON WILEY MD (PCP) Scripts Hydrocodone/Ibuprofen (HYDROCODONE-IBUPROFEN 7.5-200 ) 1 Each Tablet 1 TAB PO PRN Q6HRS PRN for PAIN, #30 TAB 0 Refills Prov: COURTNEY CABRERA MD 07/17/21 Fluconazole (DIFLUCAN) 100 Mg Tablet 100 MG PO DAILY for post antibiotics for 3 Days, #3 TAB Prov: COURTNEY CABRERA MD 07/17/21 Mesalamine (Mesalamine) 800 Mg Tablet.dr 1 TAB PO TID for pancolitis for 30 Days, #90 TAB 0 Refills Prov: COURTNEY CABRERA MD 07/17/21 Ondansetron Hcl (ZOFRAN) 4 Mg Tablet 8 MG PO QIDPRN PRN for NAUSEA/VOMITING, #30 TAB Prov: COURTNEY CABRERA MD 07/17/21 Metronidazole (FLAGYL) 375 Mg Capsule 500 MG PO TID for colitis for 10 Days, #40 CAP Prov: COURTNEY CABRERA MD 07/17/21 Ciprofloxacin Hcl (CIPRO) 500 Mg Tablet 500 MG PO BID for colitis for 7 Days, #14 TAB Prov: COURTNEY CABRERA MD 07/17/21 Dragon Disclaimer This chart was dictated in whole or in part using Voice Recognition software in a busy, high-work load, and often noisy Emergency Department environment. It may contain unintended and wholly unrecognized errors or omissions. COURTNEY CABRERA MD Jul 17, 2021 19:13
[2021-07-17 20:06] LABS: BARBITURATES NEG (NEG); BENZODIAZEPINES NEG (NEG); CANNABINOIDS POS (NEG); COCAINE NEG (NEG); METHADONE NEG (NEG); OPIATES NEG (NEG); PHENCYCLIDINE NEG (NEG)
[2021-07-17 20:08] LABS: BACTERIA,URINE 0 /HPF (0-FEW); BILIRUBIN,URINE NEG (NEG); CLARITY,URINE CLEAR; COLOR,URINE YELLOW; GLUCOSE,URINE NEG (NEG); NITRITE,URINE NEG (NEG); RBC,URINE 0 /HPF (0-2); SQUAMOUS EPITHELIAL CELL,UR FEW /LPF; UROBILINOGEN,URINE 0.2 mg/dL (0.2 mg/dL); WBC,URINE 0 /HPF (0-4)
[2021-07-17] MEDS ORDERED: cefTRIAXone SODIUM 1 GM VIAL ONE (20:10)
[2021-07-17 20:12] LABS: AMPHETAMINE/METHAMPHETAMINE NEG (NEG)
[2021-07-17] MEDS ORDERED: KETOROLAC 60 MG/2 ML VIAL. IM ONE (20:15)
[2021-07-17] MEDS ORDERED: CIPROFLOXACIN HCL 500 MG TABLET PO ONE (20:15)
[2021-07-17] MEDS ORDERED: cefTRIAXone IM 1 GM VIAL IM ONE (20:15)
[2021-07-17] MEDS ORDERED: ONDANSETRON ODT 4 MG TAB.RAPDIS PO ONE (20:15)
[2021-07-17] MEDS ORDERED: IV RINGERS SOLUTION,LACTATED 1,000 ML IV SCH (20:45)
[2021-07-17] MEDS ORDERED: KETOROLAC 30 MG/ML VIAL. IVP ONE (20:45)
[2021-07-17] MEDS ORDERED: FAMOTIDINE 20 MG/2 ML VIAL IVP ONE (20:45)
[2021-07-17] MEDS ORDERED: ONDANSETRON PF 4 MG/2 ML VIAL. IVP ONE (20:45)
[2021-07-17 20:58] LABS: BASO % 1 % (0-3); EOS % 1 % (0-3); HEMATOCRIT 35.2 % (36.0-47.0); HEMOGLOBIN 11.5 g/dL (12.0-15.5); LYMPH # 1.5 x10^3/uL (1.0-4.8); LYMPH % 17 % (24-48); MEAN CORPUSCULAR HEMOGLOBIN 21 pg (25-35); MEAN CORPUSCULAR HGB CONC 33 g/dL (31-37); MEAN CORPUSCULAR VOLUME 65 fL (79-100); MONO # 0.7 x10^3/uL (0.0-1.1); MONO % 8 % (0-9); NEUT # 6.4 x10^3uL (1.8-7.7); NEUT % 74 % (31-73); PLATELET COUNT 291 x10^3/uL (140-400); RED BLOOD COUNT 5.38 x10^6/uL (3.50-5.40); WHITE BLOOD COUNT 8.7 x10^3/uL (4.0-11.0)
[2021-07-17 21:06] LABS: CALCIUM 8.4 mg/dL (8.5-10.1); CREATININE 0.6 mg/dL (0.6-1.0); GFR 155.8; POTASSIUM 3.1 mmol/L (3.5-5.1)
[2021-07-17 21:12] LABS: ALBUMIN 4.2 g/dL (3.4-5.0); DIRECT BILIRUBIN 0.1 mg/dL (0.0-0.2); TOTAL BILIRUBIN 0.4 mg/dL (0.2-1.0); TOTAL PROTEIN 7.7 g/dL (6.4-8.2)
--- NOTE | 2021-07-17 21:42 | RAD ---
Abdominal and Pelvis CT, Without Contrast: History: Reason: Right sided abdomen pain / Spl. Instructions: / History: Comparison: April 23, 2021. Procedure: Axial images are obtained of the abdomen and pelvis, without IV or oral contrast. Oral Contrast: No Findings: Evaluation of solid organs is limited without contrast. The appendix is normal. The gallbladder is normal. There is an IUD in the uterus. There is mild wall thickening of the descending colon hepatic flexure and transverse colon. Liver: Normal. Spleen: Normal. Pancreas: Normal. Adrenal Glands: Normal. Kidneys: Normal. There is no free air or free fluid. There is no lymphadenopathy. The urinary bladder is collapsed. Moderate wall thickening is likely hypertrophy. There is no pericolonic inflammation identified. Impression: Mild luna colitis could be inflammatory or infectious. There is no diverticulitis. There is no air in the wall to suggest ischemic colitis. End impression PQRS Compliance Statement: One or more of the following individualized dose reduction techniques were utilized for this examinat ion: 1. Automated exposure control 2. Adjustment of the mA and/or kV according to patient size 3. Use of iterative reconstruction technique Electronically signed by: Tom Dennis III, MD (07/17/2021 9:40 PM) [facility]
[2021-07-17 21:48] LABS: INFLUENZA A PATIENT NEGATIVE (NEGATIVE); INFLUENZA B PATIENT NEGATIVE (NEGATIVE)
[2021-07-17 21:54] LABS: ANISOCYTOSIS SLIGHT; HYPOCHROMIA SLIGHT; MICROCYTOSIS SLIGHT; OVALOCYTES FEW; PLT ESTIMATE ADEQUATE (ADEQUATE); SCHISTOCYTES OCC; TEAR DROP CELLS OCC
[2021-07-17] MEDS ORDERED: diphenhydrAMINE 50 MG/ML VIAL IVP ONE (22:30)
[2021-07-17] MEDS ORDERED: PROCHLORPERAZINE 10 MG/2 ML VIAL. IV ONE (22:30)
[2021-07-17] MEDS ORDERED: MESA800T9 PO (23:29)
[2021-07-17] MEDS ORDERED: CIPR500T94 PO (23:29)
[2021-07-17] MEDS ORDERED: METR375C PO (23:29)
[2021-07-17] MEDS ORDERED: ONDA4TAB7 PO (23:29)
[2021-07-17] MEDS ORDERED: FLUC100T7 PO (23:36)
[2021-07-17 23:50] VITALS: BP 118/75
--- NOTE | 2021-07-17 23:54 | RAD ---
INDICATION: Reason: Right sided abdomen pain / Spl. Instructions: / History: COMPARISON: April 23, 2021 CT abdomen IMPRESSION: 3 views of the chest and abdomen obtained. Cardiac silhouette is unremarkable. No definite focal airspace consolidation or pulmonary edema. Air scattered throughout the bowel in a nonspecific but not grossly obstructive pattern. Intrauterine device is seen at the pelvis. Electronically signed by: Tommie Renteria MD (07/17/2021 11:52 PM) DESKTOP-[id number]
[2021-07-17] MEDS ORDERED: HYDR-1179 PO (23:57)
== END 2021-07-17 23:56 | disposition home or self-care (01) ==
LOC: ER 19:06
DX: K51.00 Ulcerative (chronic) pancolitis without complications (principal); R11.2 Nausea with vomiting, unspecified; F41.9 Anxiety disorder, unspecified; Z20.822 Contact with and (suspected) exposure to COVID-19; Z86.2 Personal history of diseases of the blood and blood-forming organs and certain disorders involving the immune mechanism
CPT/HCPCS: 36415; 74022; 74176; 80048; 80076; 80307; 81001; 81025; 82150; 83690; 85025; 87426; 87804; 96361; 96372; 96374; 96375; 99285; C9803; J0696; J0780; J1200; J1885; J2405; J3490; J7120; Q0162; U0003

== ENCOUNTER 2021-08-26 03:13 | Emergency (ER) | payer MEDICAID ==
[~2021-08-26] VITALS: Ht 165.1 cm; Wt 51.0 kg
[~2021-08-26 03:13] MED LIST changes: +CIPR500T94 PO; +FLUC100T7 PO; +HYDR-1179 PO; +MESA800T9 PO; +METR375C PO; +ONDA4TAB7 PO
--- NOTE | 2021-08-26 03:22 | PHYS DOC ---
Past History Past Medical History: Anemia, Anxiety, Seizure, Other Additional Past Medical Histor: SICKLE CELL TRAIT, borderline personality d/o, pseudoseizure Past Surgical History: No Surgical History Smoking: Non-smoker Alcohol Use: None Drug Use: None Adult General Chief Complaint Chief Complaint: MULTIPLE COMPLAINTS HPI HPI Patient is a 20-year-old female with a past medical history for anxiety who presents to the emergency department with nonbilious none bloody emesis the last couple of days. States she has not been able to eat much over the last 3 days but has been drinking some water. States that tonight at dinner was the first time she was able to actually eat. States she did have one episode of nausea and vomiting just before coming to the emergency department but nothing came out. States she has been vaccinated for COVID. Denies recent trauma, travels, illness, fevers, chest pain, shortness of breath, abdominal pain other than a little cramping when having an episode of nausea and vomiting, dysuria, hematuria, diarrhea or blood in the stool. Denies any vaginal bleeding, discharge, pain or history of STIs. Does endorse some urinary frequency. Denies any alcohol or drug use. Review of Systems Review of Systems Review of systems otherwise unremarkable except noted in HPI Allergies Allergies Allergies Coded Allergies Type Severity Reaction Last Updated Verified No Known Allergies Allergy Unknown 06/23/21 Yes Physical Exam Physical Exam Constitutional: Well developed, well nourished, no acute distress, non-toxic appearance. [] HENT: Normocephalic, atraumatic, oropharynx moist, Eyes: PERRLA, EOMI, conjunctiva normal, no discharge. [] Cardiovascular:Heart rate regular rhythm, no murmur [] Lungs & Thorax: Bilateral breath sounds clear to auscultation [] Abdomen: no tenderness, no masses, no pulsatile masses. [] Skin: Warm, dry, no erythema, no rash. [] Back: No tenderness, Extremities: No tenderness, ROM intact, no edema. [] Neurologic: Alert and oriented X 3, normal motor function, normal sensory function, able to sit, stand and walk without issue, no focal deficits noted. [] Psychologic: Affect normal, judgement normal, mood is anxious. [] EKG EKG [] Radiology/Procedures Radiology/Procedures [] Heart Score C/O Chest Pain: No Risk Factors: Risk Factors: DM, Current or recent (<one month) smoker, HTN, HLP, family history of CAD, obesity. Risk Scores: Risk Factors: DM, Current or recent (<one month) smoker, HTN, HLP, family history of CAD, obesity. Course & Med Decision Making Course & Med Decision Making Patient is a 20-year-old female with a past medical history of anxiety who presents to the emergency department with nausea and vomiting Vital signs notable for sinus tachycardia. Physical exam noted above. Patient given antiemetics. Laboratory analysis not concerning. Urinalysis with urinary tract infection. Patient started on antibiotics in the emergency department. Discussed all findings with patient. Sent home with antiemetics and antibiotics. Advised to follow-up with primary care physician as soon as possible to set up an appointment for reevaluation. Gave return precautions to the ED. Patient grateful, verbalized understanding and agreed with plan of discharge. [] Dragon Disclaimer Dragon Disclaimer This electronic medical record was generated, in whole or in part, using a voice recognition dictation system. Departure Departure: Impression: Primary Impression: Nausea & vomiting Additional Impression: Urinary tract infection Disposition: HOME / SELF CARE / HOMELESS Condition: GOOD Referrals: EDINSON WILEY MD (PCP) Patient Instructions: Nausea and Vomiting, Urinary Tract Infection Additional Instructions: Thank you for coming into the emergency department tonight and allowing us to take care of you. Please read the attached information carefully to go back over some of the things we discussed. It is very important you follow-up in the morning with your primary care tino lockett to update on your ED visit and set up a follow-up appointment for continued evaluation and treatment. Please come back to the ED with new or concerning symptoms as discussed. Scripts Cephalexin (KEFLEX) 500 Mg Capsule 1 CAP PO TID for UTI for 5 Days, #15 CAP Prov: BHUPENDRA ROSS MD 08/26/21 Problem Qualifiers BHUPENDRA ROSS MD Aug 26, 2021 03:22
[2021-08-26] MEDS ORDERED: METOCLOPRAMIDE HCL 10 MG/2 ML VIAL. IM ONE (03:30)
[2021-08-26] MEDS ORDERED: diphenhydrAMINE HCL 25 MG CAPSULE PO ONE (04:00)
[2021-08-26] MEDS ORDERED: ACETAMINOPHEN 500 MG TABLET PO ONE (04:00)
[2021-08-26 04:07] LABS: CALCIUM 8.7 mg/dL (8.5-10.1); CREATININE 0.5 mg/dL (0.6-1.0); GFR 192.3; MAGNESIUM 2.2 mg/dL (1.8-2.4); POTASSIUM 3.7 mmol/L (3.5-5.1)
[2021-08-26 04:07] LABS: CLARITY,URINE CLEAR; COLOR,URINE YELLOW
[2021-08-26 04:08] LABS: BACTERIA,URINE FEW /HPF (0-FEW); BILIRUBIN,URINE NEG (NEG); GLUCOSE,URINE NEG (NEG); NITRITE,URINE NEG (NEG); RBC,URINE 0 /HPF (0-2); SQUAMOUS EPITHELIAL CELL,UR MANY /LPF; UROBILINOGEN,URINE 0.2 mg/dL (0.2 mg/dL)
[2021-08-26] MEDS ORDERED: CEPH500C PO (04:25)
[2021-08-26] MEDS ORDERED: CEPHALEXIN 250 MG CAPSULE PO ONE (04:30)
[2021-08-26 04:32] LABS: INFLUENZA A PATIENT NEGATIVE (NEGATIVE); INFLUENZA B PATIENT NEGATIVE (NEGATIVE)
[2021-08-26 04:36] VITALS: BP 114/78
== END 2021-08-26 04:38 | disposition home or self-care (01) ==
LOC: ER 03:13
DX: N39.0 Urinary tract infection, site not specified (principal); Z86.2 Personal history of diseases of the blood and blood-forming organs and certain disorders involving the immune mechanism; Z20.822 Contact with and (suspected) exposure to COVID-19
CPT/HCPCS: 36415; 80048; 81001; 81025; 83735; 87086; 87428; 96372; 99284; J2765; Q0163

== ENCOUNTER 2021-09-11 04:36 | Emergency (ER) | payer MEDICAID ==
[~2021-09-11] VITALS: Ht 165.1 cm; Wt 51.0 kg
[~2021-09-11 04:36] MED LIST changes: +CEPH500C PO
--- NOTE | 2021-09-11 04:39 | PHYS DOC ---
Past History Past Medical History: Anemia, Anxiety, Seizure, Other Additional Past Medical Histor: SICKLE CELL TRAIT, borderline personality d/o, pseudoseizure (COURTNEY CABRERA MD) Past Surgical History: No Surgical History (COURTNEY CABRERA MD) Smoking: Non-smoker Alcohol Use: None Drug Use: None (COURTNEY CABRERA MD) General Adult HPI: HPI: ".. I ve been vomiting.. more than 25 times.. My abdomen is hurting bad.. I ve had this before.. they done colon and egd.. and did not find any thing..." Patient is a 21 year old female who presents with above hx and complaints of vomiting more 25 times today. Pt. history of episodes of vomiting and abdomen pain previously. Patient denies any fever or chills. Patient has had COVID vaccination x2. Has not had flu vaccination. Patient denies any intake of bad food. No specific ill contacts. No history of trauma. Patient states that smoking weed does help her pain and nausea and vomiting but she has not used any today. Patient has past medical history of anemia, anxiety, pseudoseizures, sickle cell trait, borderline personality, UTI and episodes of cyclic vomiting. Patient reports she has undergone EGD and colonoscopy of no definitive diagnosis. Pt uses a IUD for birthcontrol. No history of surgeries. Patient normally follows with Dr. Wiley. (COURTNEY CABRERA MD) Review of Systems: Review of Systems: Constitutional: Denies fever or chills Eyes: Denies change in visual acuity HENT: Denies nasal congestion or sore throat Respiratory: Denies cough or shortness of breath Cardiovascular: Denies chest pain or edema GI: Periumbilical abdominal pain, nausea, vomiting,. Denies bloody stools or diarrhea : Denies dysuria Musculoskeletal: Denies back pain or joint pain Integument: Denies rash Neurologic: Denies headache, focal weakness or sensory changes Endocrine: Denies polyuria or polydipsia Lymphatic: Denies swollen glands Psychiatric: Denies depression or anxiety (COURTNEY CABRERA MD) Family History: Family History: Noncontributory to presentation (COURTNEY CABRERA MD) Current Medications: Current Meds: See nursing for home meds (COURTNEY CABRERA MD) Allergies: Allergies: Allergies Coded Allergies Type Severity Reaction Last Updated Verified No Known Allergies Allergy Unknown 06/23/21 Yes (COURTNEY CABRERA MD) Physical Exam: PE: Constitutional: Well developed, well nourished, no acute distress, non-toxic appearance. [] HENT: Normocephalic, atraumatic, bilateral external ears normal, oropharynx moist, no oral exudates, nose normal. [] Eyes: PERRLA, EOMI, conjunctiva normal, no discharge. Glasses Neck: Normal range of motion, no tenderness, supple, no stridor. [] Cardiovascular:Heart rate regular rhythm, no murmur [] Lungs & Thorax: Bilateral breath sounds clear to auscultation [] Abdomen: Bowel sounds normal, soft, periumbilical tenderness, no masses, no pulsatile masses. [] Rebound the periumbilical and right mid. Skin: Warm, dry, no erythema, no rash. [] Back: No tenderness, no CVA tenderness. [] Extremities: No tenderness, no cyanosis, no clubbing, ROM intact, no edema. No Trousseau sign. Neurologic: Alert and oriented X 3, normal motor function, normal sensory function, no focal deficits noted. [] Psychologic: Affect anxious, becomes angry when asked about use of marijuana, states weed does not cause nausea and vomiting, judgement normal, mood normal. [] (COURTNEY CABRERA MD) Current Patient Data: Labs: Laboratory Tests Test 09/11/21 04:40 09/11/21 04:55 09/11/21 04:57 Urine Collection Type Unknown Urine Color Yellow Urine Clarity Clear Urine pH 8.0 Urine Specific [place] 1.020 Urine Protein Neg Urine Glucose (UA) Neg mg/dL Urine Ketones (Stick) Neg mg/dL Urine Blood Trace Urine Nitrite Neg Urine Bilirubin Neg Urine Urobilinogen Dipstick 0.2 mg/dL Urine Leukocyte Esterase Neg Urine RBC 0 /HPF Urine WBC Occ /HPF Urine Squamous Epithelial Cells Occ /LPF Urine Bacteria 0 /HPF Urine Opiates Screen Neg Urine Methadone Screen Neg Urine Barbiturates Neg Urine Phencyclidine Screen Neg Urine Amphetamine/Methamphetamine Neg Urine Benzodiazepines Screen Neg Urine Cocaine Screen Neg Urine Cannabinoids Screen Pos Urine Ethyl Alcohol Neg White Blood Count 10.6 x10^3/uL Red Blood Count 5.51 x10^6/uL Hemoglobin 12.3 g/dL Hematocrit 38.3 % Mean Corpuscular Volume 70 fL Mean Corpuscular Hemoglobin 22 pg Mean Corpuscular Hemoglobin Concent 32 g/dL Red Cell Distribution Width 19.9 % Platelet Count 313 x10^3/uL Neutrophils (%) (Auto) 56 % Lymphocytes (%) (Auto) 33 % Monocytes (%) (Auto) 8 % Eosinophils (%) (Auto) 2 % Basophils (%) (Auto) 1 % Neutrophils # (Auto) 5.9 x10^3uL Lymphocytes # (Auto) 3.5 x10^3/uL Monocytes # (Auto) 0.9 x10^3/uL Eosinophils # (Auto) 0.2 x10^3/uL Basophils # (Auto) 0.1 x10^3/uL Platelet Estimate Adequate Hypochromasia Slight Anisocytosis Slight Microcytosis Mod Sodium Level 140 mmol/L Potassium Level 4.1 mmol/L Chloride Level 104 mmol/L Carbon Dioxide Level 25 mmol/L Anion Gap 11 Blood Urea Nitrogen 12 mg/dL Creatinine 0.6 mg/dL Estimated GFR (Cockcroft-Gault) 154.2 Glucose Level 93 mg/dL Calcium Level 8.7 mg/dL Total Bilirubin 0.3 mg/dL Direct Bilirubin 0.1 mg/dL Aspartate Amino Transf (AST/SGOT) 24 U/L Alanine Aminotransferase (ALT/SGPT) 25 U/L Alkaline Phosphatase 75 U/L Total Protein 7.5 g/dL Albumin 4.3 g/dL Amylase Level 57 U/L Lipase 208 U/L Bedside Urine HCG, Qualitative hcg negative Current Medications Medications (Trade) Dose Ordered Sig/Katina Route PRN Reason Start Time Stop Time Status Last Admin Dose Admin Lactated Ringer's 1,000 ml @ 1,000 mls/hr Q1H IV 09/11/21 04:45 09/11/21 05:44 DC 09/11/21 05:00 Ondansetron HCl (Zofran) 8 mg 1X ONCE IVP 09/11/21 04:45 09/11/21 04:46 DC 09/11/21 05:00 Famotidine (Pepcid Vial) 20 mg 1X ONCE IVP 09/11/21 04:45 09/11/21 04:46 DC 09/11/21 05:04 Ketorolac Tromethamine (Toradol 30mg Vial) 30 mg 1X ONCE IVP 09/11/21 05:00 09/11/21 05:03 DC 09/11/21 05:15 Iohexol (Omnipaque 240 Mg/ml) 50 ml STK-MED ONCE .ROUTE 09/11/21 05:11 09/11/21 05:11 DC Magnesium Hydroxide (Milk Of Magnesia) 2,400 mg 1X ONCE PO 09/11/21 05:15 09/11/21 05:18 DC 09/11/21 05:59 Iohexol (Omnipaque 300 Mg/ml) 75 ml 1X ONCE IV 09/11/21 05:45 09/11/21 05:46 DC Info (Do NOT chart on this entry -- for MONITORING) 1 each PRN DAILY PRN MC SEE COMMENTS 09/11/21 05:45 09/13/21 05:44 Prochlorperazine Edisylate (Compazine) 10 mg 1X ONCE IV 09/11/21 05:45 09/11/21 05:46 DC 09/11/21 05:59 Diphenhydramine HCl (Benadryl) 50 mg 1X ONCE IVP 09/11/21 05:45 09/11/21 05:46 DC 09/11/21 05:59 Vital Signs: Vital Signs Date Time Temp Pulse Resp B/P (MAP) Pulse Ox O2 Delivery O2 Flow Rate FiO2 09/11/21 04:36 97.9 98 104/66 (79) 99 Room Air 09/11/21 06:05 18 Vital Signs Date Time Temp Pulse Resp B/P (MAP) Pulse Ox O2 Delivery O2 Flow Rate FiO2 09/11/21 06:05 78 18 114/64 (81) 100 Room Air 09/11/21 04:36 97.9 (CHASIDY AQUINO DO) EKG: EKG: [] (COURTNEY CABRERA MD) Radiology/Procedures: Radiology/Procedures: [] (COURTNEY CABRERA MD) Radiology/Procedures: CT ABDOMEN+PELVIS W History: Abdomen pain Comparison: 07/17/2021. Technique: After administration of intravenous contrast, helical CT of the ab domen and pelvis was performed from the lung bases through the ischial tuberosities. Coronal and sagittal reconstructions were obtained. 75 mL of Omnipaque 3 were used. One or more of the following dose reduction techniques were utilized: Automated exposure control (AEC), Adjustment of mA and/or kV according to patient size, Use of iterative reconstruction technique such as ASiR, CT scan done according to ALARA and image gently/image wisely Abdomen Findings: The visualized lung bases are clear. No focal hepatic lesions. Liver measures 20.5 cm craniocaudad. Periportal edema. The gallbladder, pancreas, spleen, and bilateral adrenal glands are normal. Symmetric renal enhancement. There is no focal renal mass. There is no hydronephrosis. The visualized loops of small bowel are normal. The visualized loops of large bowel are normal. There is no evidence of bowel obstruction. Appendix is is not seen. There is no free fluid. There is no mesenteric or retroperitoneal adenopathy. The abdominal aorta is normal in caliber. Pelvis Findings: Urinary bladder is partially distended and demonstrates circumferential wall thickening. Uterus is present with heterogeneous myometrial enhancement. Low- lying IUD appears to be within the cervix, similar to prior exams. No pelvic free fluid. There is no pelvic or inguinal adenopathy. There is no acute bony abnormality. IMPRESSION: 1. Hepatic periportal edema, nonspecific but can be seen in the setting of fluid resuscitation, vascular congestion, hepatitis, and other conditions. Clinical correlation is advised. 2. Circumferential bladder wall thickening, which may relate to underdistention versus cystitis. 3. Low-lying IUD within the cervix. Electronically signed by: Arturo Bang MD (09/11/2021 6:45 AM) [facility] (CHASIDY AQUINO DO) Heart Score: C/O Chest Pain: N/A Risk Factors: Risk Factors: DM, Current or recent (<one month) smoker, HTN, HLP, family history of CAD, obesity. Risk Scores: Score 0 - 3: 2.5% MACE over next 6 weeks - Discharge Home Score 4 - 6: 20.3% MACE over next 6 weeks - Admit for Clinical Observation Score 7 - 10: 72.7% MACE over next 6 weeks - Early Invasive Strategies (COURTNEY CABRERA MD) Course & Med Decision Making: Course & Med Decision Making Pertinent Labs and Imaging studies reviewed. (See chart for details) Pt. endorsed to Dr. Aquino at shift change. X-ray and CT pending at shift change. Impression: 1. Abdomen Pain 2. Cyclic Nausea and Vomiting 3. Constipation 4. UDS= + Marijuana 6. Microcytic/Hypochromic indices MCV 70/MCH 22 [] (COURTNEY CABRERA MD) Course & Med Decision Making I assumed care after comprehensive signout from outgoing physician. I personally saw patient and repeated aspects of history and physical exam. I rev iewed entirety of ER work-up with patient he was now feeling better after provided intervention. Nonlife-threatening abnormalities identified, discussed symptoms likely related to ongoing marijuana abuse. Marijuana cessation, supportive care practices and strict outpatient follow-up with PCP and GI physicians in outpatient setting advised (CHASIDY AQUINO DO) Dragon Disclaimer: Dragon Disclaimer: This electronic medical record was generated, in whole or in part, using a voice recognition dictation system. (COURTNEY CABRERA MD) Departure Departure: Impression: Primary Impression: Nausea & vomiting Additional Impression: Tetrahydrocannabinol (THC) dependence Disposition: HOME / SELF CARE / HOMELESS Condition: STABLE Referrals: EDINSON WILEY MD (PCP) Patient Instructions: Nausea and Vomiting Additional Instructions: You were seen for nausea and vomiting. Your symptoms are most likely due to ongoing cannabis use. There were no obvious abnormalities given your comprehensive ER work-up in ER setting today. You should return to the ED if you develop abdominal pain, fever > 100.3, black/bloody stools, black/bloody vomiting, cannot keep water down, or any other new or concerning symptoms. Dragon Disclaimer This chart was dictated in whole or in part using Voice Recognition software in a busy, high-work load, and often noisy Emergency Department environment. It may contain unintended and wholly unrecognized errors or omissions. (COURTNEY CABRERA MD) Dragon Disclaimer This chart was dictated in whole or in part using Voice Recognition software in a busy, high-work load, and often noisy Emergency Department environment. It may contain unintended and wholly unrecognized errors or omissions. (COURTNEY CABRERA MD) COURTNEY CABRERA MD Sep 11, 2021 04:39 CHASIDY AQUINO DO Sep 11, 2021 06:53
[2021-09-11] MEDS ORDERED: ONDANSETRON PF 4 MG/2 ML VIAL. IVP ONE (04:45)
[2021-09-11] MEDS ORDERED: IV RINGERS SOLUTION,LACTATED 1,000 ML IV SCH (04:45)
[2021-09-11] MEDS ORDERED: FAMOTIDINE 20 MG/2 ML VIAL IVP ONE (04:45)
[2021-09-11] MEDS ORDERED: KETOROLAC 30 MG/ML VIAL. IVP ONE (05:00)
[2021-09-11 05:11] LABS: BASO # 0.1 x10^3/uL (0.0-0.2); BASO % 1 % (0-3); EOS # 0.2 x10^3/uL (0.0-0.7); EOS % 2 % (0-3); HEMATOCRIT 38.3 % (36.0-47.0); HEMOGLOBIN 12.3 g/dL (12.0-15.5); LYMPH # 3.5 x10^3/uL (1.0-4.8); LYMPH % 33 % (24-48); MEAN CORPUSCULAR HEMOGLOBIN 22 pg (25-35); MEAN CORPUSCULAR HGB CONC 32 g/dL (31-37); MEAN CORPUSCULAR VOLUME 70 fL (79-100); MONO # 0.9 x10^3/uL (0.0-1.1); MONO % 8 % (0-9); NEUT # 5.9 x10^3uL (1.8-7.7); NEUT % 56 % (31-73); PLATELET COUNT 313 x10^3/uL (140-400); RED BLOOD COUNT 5.51 x10^6/uL (3.50-5.40); RED CELL DISTRIBUTION WIDTH 19.9 % (11.5-14.5); WHITE BLOOD COUNT 10.6 x10^3/uL (4.0-11.0)
[2021-09-11] MEDS ORDERED: IOHEXOL 240 MG/ML 50ML VIAL. ONE (05:11)
[2021-09-11] MEDS ORDERED: MAGNESIUM HYDROXIDE 2,400 MG/30 ML ORAL.SUSP. PO ONE (05:15)
[2021-09-11 05:17] LABS: CALCIUM 8.7 mg/dL (8.5-10.1); CREATININE 0.6 mg/dL (0.6-1.0); GFR 154.2; POTASSIUM 4.1 mmol/L (3.5-5.1)
[2021-09-11 05:20] LABS: BACTERIA,URINE 0 /HPF (0-FEW); BILIRUBIN,URINE NEG (NEG); CLARITY,URINE CLEAR; COLOR,URINE YELLOW; GLUCOSE,URINE NEG (NEG); NITRITE,URINE NEG (NEG); RBC,URINE 0 /HPF (0-2); SQUAMOUS EPITHELIAL CELL,UR OCC /LPF; UROBILINOGEN,URINE 0.2 mg/dL (0.2 mg/dL); WBC,URINE OCC /HPF (0-4)
[2021-09-11 05:22] LABS: AMPHETAMINE/METHAMPHETAMINE NEG (NEG); BARBITURATES NEG (NEG); BENZODIAZEPINES NEG (NEG); CANNABINOIDS POS (NEG); COCAINE NEG (NEG); METHADONE NEG (NEG); OPIATES NEG (NEG); PHENCYCLIDINE NEG (NEG)
[2021-09-11 05:23] LABS: ALBUMIN 4.3 g/dL (3.4-5.0); DIRECT BILIRUBIN 0.1 mg/dL (0.0-0.2); TOTAL BILIRUBIN 0.3 mg/dL (0.2-1.0); TOTAL PROTEIN 7.5 g/dL (6.4-8.2)
[2021-09-11 05:37] LABS: ANISOCYTOSIS SLIGHT; HYPOCHROMIA SLIGHT; MICROCYTOSIS MOD; PLT ESTIMATE ADEQUATE (ADEQUATE)
[2021-09-11] MEDS ORDERED: diphenhydrAMINE 50 MG/ML VIAL IVP ONE (05:45)
[2021-09-11] MEDS ORDERED: IOHEXOL 300 MG/ML 75 ML VIAL. IV ONE (05:45)
[2021-09-11] MEDS ORDERED: CONTRAST GIVEN. MC PRN (05:45)
[2021-09-11] MEDS ORDERED: PROCHLORPERAZINE 10 MG/2 ML VIAL. IV ONE (05:45)
--- NOTE | 2021-09-11 05:47 | RAD ---
XR ABDOMEN COMP ACUTE INDICATION: pain COMPARISON STUDY: None. FINDINGS: Lungs: Normal lung volume. No pulmonary mass or consolidation. The tracheobronchial tree and hilar st ructures are normal. Pleura: No pleural effusion or pneumothorax. Heart and Mediastinum: The cardiomediastinal silhouette is normal. The great vessels of the thorax ar e normal. Abdomen: Nonobstructive bowel gas pattern. No free air. Moderate colonic stool burden. 80 overlying t he pelvis. IMPRESSION: 1. Nonobstructive bowel gas pattern. Moderate colonic stool burden. 2. No focal airspace disease Electronically signed by: Arturo Bang MD (09/11/2021 5:45 AM) [facility]
[2021-09-11 06:05] VITALS: BP 114/64
--- NOTE | 2021-09-11 06:47 | RAD ---
CT ABDOMEN+PELVIS W History: Abdomen pain Comparison: 07/17/2021. Technique: After administration of intravenous contrast, helical CT of the abdomen and pelvis was per formed from the lung bases through the ischial tuberosities. Coronal and sagittal reconstructions wer e obtained. 75 mL of Omnipaque 3 were used. One or more of the following dose reduction techniques we re utilized: Automated exposure control (AEC), Adjustment of mA and/or kV according to patient size, Use of iterative reconstruction technique such as ASiR, CT scan done according to ALARA and image gen tly/image wisely Abdomen Findings: The visualized lung bases are clear. No focal hepatic lesions. Liver measures 20.5 cm craniocaudad. Periportal edema. The gallbladder, luna creas, spleen, and bilateral adrenal glands are normal. Symmetric renal enhancement. There is no focal renal mass. There is no hydronephrosis. The visualized loops of small bowel are normal. The visualized loops of large bowel are normal. There is no evidence of bowel obstruction. Appendix is is not seen. There is no free fluid. There is no mesenteric or retroperitoneal adenopathy. The abdominal aorta is normal in caliber. Pelvis Findings: Urinary bladder is partially distended and demonstrates circumferential wall thickening. Uterus is pr esent with heterogeneous myometrial enhancement. Low-lying IUD appears to be within the cervix, simil ar to prior exams. No pelvic free fluid. There is no pelvic or inguinal adenopathy. There is no acute bony abnormality. IMPRESSION: 1. Hepatic periportal edema, nonspecific but can be seen in the setting of fluid resuscitation, vascu lar congestion, hepatitis, and other conditions. Clinical correlation is advised. 2. Circumferential bladder wall thickening, which may relate to underdistention versus cystitis. 3. Low-lying IUD within the cervix. Electronically signed by: Arturo Bang MD (09/11/2021 6:45 AM) [facility]
== END 2021-09-11 07:07 | disposition home or self-care (01) ==
LOC: ER 04:36
DX: D50.9 Iron deficiency anemia, unspecified (principal); K59.00 Constipation, unspecified; F12.20 Cannabis dependence, uncomplicated; R11.2 Nausea with vomiting, unspecified; F41.9 Anxiety disorder, unspecified; Z87.440 Personal history of urinary (tract) infections
CPT/HCPCS: 36415; 74022; 74177; 80048; 80076; 80307; 81001; 81025; 82150; 83690; 85025; 96361; 96374; 96375; 99285; J0780; J1200; J1885; J2405; J3490; J7120

== ENCOUNTER 2021-09-14 23:20 | Emergency (ER) | payer MEDICAID ==
[~2021-09-14] VITALS: Ht 165.1 cm; Wt 51.0 kg
[2021-09-14] MEDS ORDERED: ONDANSETRON ODT 4 MG TAB.RAPDIS ONE (23:52)
[2021-09-15] MEDS ORDERED: ONDA-84 PO (00:23)
--- NOTE | 2021-09-15 00:23 | PHYS DOC ---
Past History Past Medical History: Anemia, Anxiety, Seizure, Other Additional Past Medical Histor: SICKLE CELL TRAIT, borderline personality d/o, pseudoseizure (TESFAYE MATHIS APRN) Past Surgical History: No Surgical History (TESFAYE MATHIS APRN) Smoking: Non-smoker Alcohol Use: Rarely Drug Use: None (TESFAYE MATHIS APRN) General Adult EDM: Chief Complaint: ABDOMINAL PAIN HPI: HPI: Patient is a 21-year-old female who presents with nausea/vomiting/abdominal pain. Patient is well-known to this ER and has been seen for this complaint numerous times. Patient reports this is a chronic issue . Patient was just seen 3 days ago in the emergency room for same presentation. Denies pain or nausea any worse. Denies chest pain, shortness of breath. Patient has history of cyclic vomiting secondary to marijuana use, pseudoseizures, borderline personality disorder, anxiety and depression. (TESFAYE MATHIS APRN) Review of Systems: Review of Systems: ROS At least 10 ROS systems have been reviewed and are negative except as documented in the HPI. General: Negative except as outlined in HPI above. Skin: Negative except as outlined in HPI above. HEENT: Negative except as outlined in HPI above. Neck: Negative except as outlined in HPI above. Respiratory: Negative except as outlined in HPI above.. Cardiovascular: Negative except as outlined in HPI above. Abdomen: Negative except as outlined in HPI above. : Negative except as outlined in HPI above. Back/MSK: Negative except as outlined in HPI above. Neuro: Negative except as outlined in HPI above. Psych: Negative except as outlined in HPI above. (TESFAYE MATHIS APRN) Current Medications: Current Meds: Current Medications Medications (Trade) Dose Ordered Sig/Katina Start Time Stop Time Status Last Admin Dose Admin Ondansetron HCl (Zofran Odt) 4 mg STK-MED ONCE 09/14/21 23:52 09/14/21 23:52 DC (TESFAYE MATHIS APRN) Allergies: Allergies: Allergies Coded Allergies Type Severity Reaction Last Updated Verified No Known Allergies Allergy Unknown 06/23/21 Yes (TESFAYE MATHIS APRN) Physical Exam: PE: Constitutional: Well developed, well nourished, no acute distress, non-toxic appearance. [] HENT: Normocephalic, atraumatic, bilateral external ears normal, oropharynx moist, no oral exudates, nose normal. [] Eyes: PERRLA, conjunctiva normal, no discharge. [] Neck: Normal range of motion, no tenderness, supple, no stridor. [] Cardiovascular:Heart rate regular rhythm, no murmur [] Lungs & Thorax: Bilateral breath sounds clear to auscultation [] Abdomen: Bowel sounds normal, soft, generalized abdominal tenderness Skin: Warm, dry, no erythema, no rash. [] Back: No tenderness, no CVA tenderness. [] Extremities: No tenderness, no cyanosis, no clubbing, ROM intact, no edema. [] Neurologic: Alert and oriented X 3, normal motor function, normal sensory function, no focal deficits noted. [] Psychologic: Anxious mood, tearful (TESFAYE MATHIS APRN) Current Patient Data: Labs: Laboratory Tests Test 09/14/21 23:47 POC Urine HCG, Qualitative hcg negative (Negative) (TESFAYE MATHIS APRN) EKG: EKG: [] (TESFAYE MATHIS APRN) Radiology/Procedures: Radiology/Procedures: [] (TESFAYE MATHIS APRN) Heart Score: C/O Chest Pain: No Risk Factors: Risk Factors: DM, Current or recent (<one month) smoker, HTN, HLP, family history of CAD, obesity. Risk Scores: Score 0 - 3: 2.5% MACE over next 6 weeks - Discharge Home Score 4 - 6: 20.3% MACE over next 6 weeks - Admit for Clinical Observation Score 7 - 10: 72.7% MACE over next 6 weeks - Early Invasive Strategies (TESFAYE MATHIS APRN) Course & Med Decision Making: Course & Med Decision Making Pertinent Labs and Imaging studies reviewed. (See chart for details) [] Patient is a 21-year-old female presents with nausea/vomiting, cyclic vomiting secondary to marijuana use. Patient denies increase in vomiting or abdominal pain. Patient reports that symptoms are the same as chronic pain. Patient reports that she has been dealing with this issue for years and has seen her PCP, Dr. Gr for same complaint for a few years. Patient states that the only thing that helps with symptoms are IV Zofran and hydrocodone. I discussed with patient that vomiting was secondary to marijuana use. Patient states that she is discussed this with multiple doctors and does not agree with diagnosis. Patient states that she has quit smoking marijuana with no relief of nausea and vomiting. I advised patient that I would be willing to give her pain medication along with nausea medication while in the emergency room but was not going to be able to send her home with pain medication. Patient would need to follow-up with pain management and also her PCP for further management. Patient was upset that she would not be sent home with hydrocodone. "If I take the hydrocodone at home then I do not want to smoke weed and my pain and nausea are resolved". "Usually they prescribed me 7.5 mg hydrocodone's to take at home which make my pain better". I discussed patient seeing a psychiatrist as well to help with her anxiety. Patient states that she has an appointment with the [facility] in a few days. Patient was seen in this ER 3 days ago and had a full work-up along with a CT. Presentation has not changed with no new complaints. Patient's main interest was obtaining pain medication for at home. Patient given ODT Zofran, IV Haldol, p.o. 5/25 hydrocodone. Patient sent home with a prescription for Zofran ODT, Phenergan. Advised patient that she needs to make a follow-up appointment with her PCP and keep her appointment she has scheduled with the [facility]. (TESFAYE MATHIS APRN) Course & Med Decision Making Did not see or evaluate patient. Did not discuss patient with SERVER DEVELOPER. Generally agree with SERVER DEVELOPER's work-up and disposition per note (BHUPENDRA ROSS MD) Dragon Disclaimer: Dragon Disclaimer: This electronic medical record was generated, in whole or in part, using a voice recognition dictation system. (TESFAYE MATHIS APRN) Departure Departure: Impression: Primary Impression: Cyclic vomiting syndrome Disposition: HOME / SELF CARE / HOMELESS Condition: STABLE Referrals: EDINSON WILEY MD (PCP) Patient Instructions: Cyclic Vomiting Syndrome Additional Instructions: You were seen in the emergency room for vomiting. You were also seen here 3 days ago for the same symptoms. Your nausea was treated with IV Zofran and IV Haldol. I am sending you home with p.o. Zofran along with Phenergan suppositories to help with symptoms at home. Please discontinue marijuana use. Follow-up with Dr. Barry Echo in the guidance [facility]. Return to the emergency room if you have worsening symptoms or concerns such as an increase and vomiting, fever, abdominal pain. EMERGENCY DEPARTMENT GENERAL DISCHARGE INSTRUCTIONS Thank you for coming to [facility] (ED) today and trusting us with you care. We trust that you had a positivie experience in our Emergency Department. If you wish to speak to the department management, you may call the director at [phone]. YOUR FOLLOW UP INSTRUCTIONS ARE FOLLOWS: 1. Do you have a private Doctor? If you do not have a private doctor, please ask for a resource list of physicians or clinics that may be able to assist you with follow up care. 2. The Emergency Physician has interpreted your x-rays. The X-Ray specialist will also review them. If there is a change in the findings, you will be notified in 48 hours when at all possible. 3. A lab test or culture has been done, your results will be reviewed and you will be notified if you need a change in treatment. ADDITIONAL INSTRUCTIONS AND INFORMATION: 1. Your care today has been supervised by a physician who is specially trained in emergency care. Many problems require more than one evaluation for a complete diagnosis and treatment. We recommend that you schedule your follow up appointment as recommended to ensure complete treatment of you illness or injury. If you are unable to obtain follow up care and continue to have a problem, or if your condition worsens, we recommend that you return to the ED. 2. We are not able to safely determine your condition over the phone nor are we able to give sound medical advice over the phone. For these safety reasons, if you call for medical advice we will ask you to come to the ED for further evaluation. 3. If you have any questions regarding these discharge instructions please call the ED at [phone]. SAFETY INFORMATION: In the interest of safety, wellness, and injury prevention; we encourage you to wear your sealbelt, if you smoke; quite smoking, and we encourage family to use a protective helmet for bicycling and other sporting events that present an increased risk for head injury. IF YOUR SYMPTOMS WORSEN OR NEW SYMPTOMS DEVELOP, OR YOU HAVE CONCERNS ABOUT YOUR CONDITION; OR IF YOUR CONDITION WORSENS WHILE YOU ARE WAITING FOR YOUR FOLLOW UP APPOINTMENT; EITHER CONTACT YOUR PRIMARY CARE DOCTOR, THE PHYSICIAN WHOSE NAME AND NUMBER YOU WERE GIVEN, OR RETURN TO THE ED IMMEDIATELY. Scripts Promethazine Hcl (PROMETHAZINE HCL) 25 Mg Supp.rect 2-Jul SUPP RC QID for nausea for 3 Days, #20 SUPP 0 Refills Prov: TESFAYE MATHIS APRN 09/15/21 Ondansetron Hcl (ONDANSETRON HCL) 4 Mg Tablet 4 MG PO PRN TID PRN for NAUSEA for 10 Days, #30 TAB Prov: TESFAYE MATHIS APRN 09/15/21 TESFAYE MATHIS APRN Sep 15, 2021 00:23 BHUPENDRA ROSS MD Sep 15, 2021 03:48
[2021-09-15] MEDS ORDERED: HALOPERIDOL LACT 5 MG/ML VIAL. IVP ONE (00:30)
[2021-09-15] MEDS ORDERED: HYDROcodone/APAP 5/325MG 1 TAB TABLET PO ONE (00:30)
[2021-09-15] MEDS ORDERED: PROM25SU33 RC (00:56)
[2021-09-15 01:45] VITALS: BP 136/89
[2021-09-15] MEDS ORDERED: ONDANSETRON ODT 4 MG TAB.RAPDIS PO ONE (01:45)
[2021-09-15] MEDS ORDERED: PROMETHAZINE 25 MG SUPP.RECT. PR ONE (01:45)
[2021-09-15] MEDS ORDERED: PROMETHAZINE 25 MG SUPP.RECT. ONE (01:48)
== END 2021-09-15 01:50 | disposition home or self-care (01) ==
LOC: ER 23:20
DX: R11.15 Cyclical vomiting syndrome unrelated to migraine (principal); F41.9 Anxiety disorder, unspecified; Z86.2 Personal history of diseases of the blood and blood-forming organs and certain disorders involving the immune mechanism
CPT/HCPCS: 81025; 96374; 99284; J1630; Q0162

== ENCOUNTER 2021-09-30 02:43 | Emergency (ER) | payer MEDICAID ==
[~2021-09-30] VITALS: Ht 165.1 cm; Wt 53.8 kg
[~2021-09-30 02:43] MED LIST changes: +ONDA-84 PO; +PROM25SU33 RC
--- NOTE | 2021-09-30 02:49 | PHYS DOC ---
Past History Past Medical History: Anemia, Anxiety, Seizure, Other Additional Past Medical Histor: SICKLE CELL TRAIT, borderline personality d/o, pseudoseizure Past Surgical History: No Surgical History Smoking: Non-smoker Alcohol Use: None Drug Use: None Adult General HPI HPI Patient is a 21-year-old female with a past medical history of chronic nausea and vomiting, marijuana use who presents with a chief complaint of nausea over the last day. States she tried taking Zofran at home earlier with minimal relief. Denies any recent new traumas, illnesses, fevers, chest pain, shortness of breath, abdominal pain, dysuria, hematuria, blood in the stool or diarrhea. Denies any vaginal bleeding, discharge pain or history of STIs. Review of Systems Review of Systems Review of systems otherwise unremarkable except noted in HPI Allergies Allergies Allergies Coded Allergies Type Severity Reaction Last Updated Verified No Known Allergies Allergy Unknown 06/23/21 Yes Physical Exam Physical Exam Constitutional: Well developed, well nourished, no acute distress, non-toxic appearance. [] HENT: Normocephalic, atraumatic, oropharynx moist, Eyes: PERRLA, EOMI, conjunctiva normal, no discharge. [] Neck: Normal range of motion, no tenderness, supple, no stridor. [] Cardiovascular:Heart rate regular rhythm, no murmur [] Lungs & Thorax: Bilateral breath sounds clear to auscultation [] Abdomen: soft, no tenderness, no masses, no pulsatile masses. [] Skin: Warm, dry, no erythema, no rash. [] Back: no CVA tenderness. [] Extremities: No tenderness, no cyanosis, no clubbing, ROM intact, no edema. [] Neurologic: Alert and oriented X 3, normal motor function, normal sensory function, able to sit, stand and walk without issue, no focal deficits noted. [] Psychologic: Affect normal, judgement normal, mood normal. [] EKG EKG [] Radiology/Procedures Radiology/Procedures [] Heart Score C/O Chest Pain: No Risk Factors: Risk Factors: DM, Current or recent (<one month) smoker, HTN, HLP, family history of CAD, obesity. Risk Scores: Risk Factors: DM, Current or recent (<one month) smoker, HTN, HLP, family history of CAD, obesity. Course & Med Decision Making Course & Med Decision Making Patient is a 21-year-old female presents with nausea Vital signs nonconcerning. Physical exam noted above. Given antiemetics x3 Patient able to take p.o. on reassessment. Discussed symptom treatment at home. Given prescription of Phenergan suppositories for home Advise staying away from anything that could cause nausea for at least 8 weeks to discern whether these are causing it such as marijuana, alcohol and some diet as she may have a food intolerance Advised to follow-up in the morning with primary care physician update on ED visit and set up a follow-up visit to discuss these things and try to figure out an etiology of her chronic nausea Patient grateful, verbalized understanding and agreed with plan of discharge. Dragon Disclaimer Dragon Disclaimer This electronic medical record was generated, in whole or in part, using a voice recognition dictation system. Departure Departure: Impression: Primary Impression: Nausea Disposition: HOME / SELF CARE / HOMELESS Condition: GOOD Referrals: EDINSON WILEY MD (PCP) Patient Instructions: Nausea and Vomiting Additional Instructions: Thank you for coming into the emergency department tonight and allowing us to ta ke care of you. Please read the attached information carefully go over things we discussed. Please take your nausea medicine as prescribed as needed every 6 hours. You can also take 50 mg of Benadryl every 6 hours as this is a good medicine for nausea. Scripts Promethazine Hcl (PROMETHAZINE HCL) 25 Mg Supp.rect -Jul SUPP RC BID for N/V for 5 Days, #10 SUPP 0 Refills Prov: BHUPENDRA ROSS MD 09/30/21 BHUPENDRA ROSS MD Sep 30, 2021 02:49
[2021-09-30] MEDS ORDERED: ONDANSETRON ODT 4 MG TAB.RAPDIS PO ONE (03:00)
[2021-09-30] MEDS ORDERED: METOCLOPRAMIDE HCL 10 MG/2 ML VIAL. IM ONE (03:00)
[2021-09-30] MEDS ORDERED: ESCITALOPRAM OX10 MG PO (03:27)
[2021-09-30] MEDS ORDERED: MIRT-8 PO (03:27)
[2021-09-30] MEDS ORDERED: LEVO1IUD3 IY (03:28)
[2021-09-30 03:30] VITALS: BP 110/60
[2021-09-30] MEDS ORDERED: diphenhydrAMINE HCL 25 MG CAPSULE PO ONE (03:30)
[2021-09-30] MEDS ORDERED: PROM25SU33 RC (03:44)
[2021-09-30] MEDS ORDERED: PROMETHAZINE 25 MG SUPP.RECT. PR ONE (04:00)
[2021-09-30 04:01] LABS: CLARITY,URINE CLEAR; COLOR,URINE YELLOW; GLUCOSE,URINE NEG (NEG)
[2021-09-30 04:02] LABS: NITRITE,URINE NEG (NEG); UROBILINOGEN,URINE 0.2 mg/dL (0.2 mg/dL)
[2021-09-30 04:03] LABS: BACTERIA,URINE 0 /HPF (0-FEW); RBC,URINE 0 /HPF (0-2); SQUAMOUS EPITHELIAL CELL,UR OCC /LPF; WBC,URINE OCC /HPF (0-4)
== END 2021-09-30 04:00 | disposition home or self-care (01) ==
LOC: ER 02:43
DX: R11.0 Nausea (principal); F41.9 Anxiety disorder, unspecified; Z86.2 Personal history of diseases of the blood and blood-forming organs and certain disorders involving the immune mechanism
CPT/HCPCS: 81001; 81025; 96372; 99284; J2765; Q0162; Q0163